=== PATIENT | female | born 2000 | race Caucasian/White ===

== ENCOUNTER 2023-05-04 19:18 | Emergency (ER) | payer MEDICAID ==
[~2023-05-04] VITALS: Ht 149.9 cm; Wt 69.6 kg
[2023-05-04 19:35] VITALS: TEMP 98.2; O2SAT 100
[2023-05-04 19:55] LABS: BASOPHILS % 0.4 % (0.0-2.0); EOSINOPHILS % 0.9 % (0.0-5.0); HEMATOCRIT. 42.1 % (36.0-48.0); HEMOGLOBIN. 13.5 g/dL (12.0-16.0); LYMPHOCYTES % 28.8 % (20.0-50.0); MEAN CORPUSCULAR HEMOGLOBIN 26.2 pg (28.0-32.0); MEAN CORPUSCULAR HGB CONC 32.1 g/dL (31.0-37.0); MEAN CORPUSCULAR VOLUME 81.7 fL (81.0-99.0); MEAN PLATELET VOLUME 7.9 fl (7.4-10.4); MONOCYTES % 8.2 % (2.0-8.0); NEUTROPHILS % 61.7 % (40.0-76.0); PLATELET 377 x1000/uL (130-400); RED BLOOD CELL COUNT 5.16 mill/uL (4.2-5.4); RED CELL DISTRIBUTION WIDTH 14.7 % (11.6-14.6); WHITE BLOOD COUNT 10.1 x1000/uL (4.5-11.0)
[2023-05-04 20:04] LABS: CHLORIDE 108 mEq/L (98-107); INDEX HEMOLYSI 1 (1-3); INDEX ICTERIC 1 (1-4); INDEX LIPEMIC 1 (1-3); POTASSIUM 3.8 mEq/L (3.5-5.1); SODIUM 137 mEq/L (136-145)
[2023-05-04 20:13] LABS: ALANINE AMINOTRANSFERASE 31 IU/L (13-61); ALBUMIN 3.8 g/dL (3.4-5.0); ASPARTATE AMINOTRANSFERASE 15 IU/L (15-37); BILIRUBIN TOTAL 0.2 mg/dL (0.1-1.0); CALCIUM 8.8 mg/dL (8.5-10.1); CARBON DIOXIDE 25 mEq/L (21-32); CREATININE 0.9 mg/dL (0.6-1.3); GLUCOSE 98 mg/dL (70-105); HCG SCREEN NEGATIVE; PROTEIN TOTAL 7.8 g/dL (6.0-8.3); UREA NITROGEN BLOOD 9 mg/dL (7-21)
[2023-05-05] MEDS ORDERED: KETOROLAC 60MG/2ML VIAL IM NR (01:30)
[2023-05-05 02:05] VITALS: BP 110/72; PULSE 94; RESP 18
[2023-05-05] MEDS ORDERED: IBUP-2029 MT (02:45)
[2023-05-05] MEDS ORDERED: ONDA4TAB50 MT (02:45)
== END 2023-05-05 03:41 | disposition home or self-care (01) ==
LOC: ER 19:18
DX: K80.50 Calculus of bile duct without cholangitis or cholecystitis without obstruction (principal); R10.11 Right upper quadrant pain
CPT/HCPCS: 80053; 84703; 83690; 85025; 36415; 76705; 96372 ×2; 99285; J1885; Z7610